=== PATIENT | male | born 1965 | race Caucasian/White ===

== ENCOUNTER 2017-03-31 20:06 | Emergency (ER) | payer BC ==
[2017-03-31 20:12] VITALS: BP 132/84
[2017-03-31] MEDS ORDERED: Diphtheria,Pertussis(Acell),Tetanus Vaccine 0.5 ML SDV IM ONE (20:13)
--- NOTE | 2017-03-31 20:51 | EDM.PDOC ---
ED HPI GENERAL MEDICAL PROBLEM - General Chief Complaint: Laceration Stated Complaint: left hand index finger laceration Time Seen by Provider: 03/31/17 20:30 Source of Information: Reports: Patient History Limitations: Reports: No Limitations - History of Present Illness INITIAL COMMENTS - FREE TEXT/NARRATIVE: Patient comes with laceration to tip of left index finger from knife. Was cleaning up dishes at the time. No other complaints. No loss of function of affected finger. No numbness. 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 [No Known Home Meds] 06/10/14 [History] Past Medical History - Past Health History Medical/Surgical History: Denies Medical/Surgical History Social & Family History - Tobacco Use Smoking Status *Q: Never Smoker Second Hand Smoke Exposure: No - Caffeine Use Caffeine Use: Reports: None - Alcohol Use Days Per Week of Alcohol Use: 1 Number of Drinks Per Day: 1 Total Drinks Per Week: 1 - Recreational Drug Use Recreational Drug Use: No ED ROS GENERAL - Review of Systems Review Of Systems: ROS reveals no pertinent complaints other than HPI. ED EXAM, SKIN/RASH Exam: See Below Exam Limited By: No Limitations General Appearance: Alert, WD/WN, No Apparent Distress Eye Exam: Bilateral Eye: EOMI, PERRL Head: Atraumatic, Normocephalic Neck: Supple Respiratory/Chest: No Respiratory Distress Neurological: Alert, Oriented, Normal Cognition, Normal Gait, No Motor/Sensory Deficits Psychiatric: Normal Affect, Normal Mood Skin: Warm, Dry, Other (1.5cm laceration to pad of left index finger. Tendon function intact. NVI. ) ED SKIN PROCEDURES - Laceration/Wound Repair Left Finger Lac/Wound length In cm: 1.5 Appearance: Subcutaneous, Clean Distal NVT: Neuro & Vascular Intact, No Tendon Injury Anesthetic Type: Local Local Anesthesia - Lidocaine (Xylocaine): 1% Plain Local Anesthetic Volume: 1cc Skin Prep: Providone-Iodine (Betadine) Exploration/Debridement/Repair: Wound Explored, In a Bloodless Field, Explored to Base Closed with: Sutures Suture Size: other (5-0) # of Sutures: 2 Suture Type: Nylon, Interrupted Drain Placement: No Sterile Dressing Applied: Nurse Tetanus Status Addressed: Yes Complications: No Course - Vital Signs Last Recorded V/S: Last Vital Signs Temp 36.7 C 03/31/17 20:11 Pulse 83 03/31/17 20:11 Resp 16 03/31/17 20:11 BP 132/84 03/31/17 20:11 Pulse Ox 94 L 03/31/17 20:11 - Orders/Labs/Meds Orders: Active Orders 24 hr Category Date Time Status Vaccines to be Administered [RC] PER UNIT ROUTINE Care 03/31/17 20:13 Active Hand 2V Lt [CR] Stat Exams 03/31/17 20:12 Taken Meds: Medications Discontinued Medications Generic Name Dose Route Start Last Admin Trade Name Freq PRN Reason Stop Dose Admin Diphtheria/Tetanus/Acell Pertussis 0.5 ml 03/31/17 20:13 03/31/17 20:29 Adacel IM 03/31/17 20:14 0.5 ml .ONCE ONE Administration Lidocaine HCl 5 ml 03/31/17 20:33 Xylocaine-Mpf 1% INJECT 03/31/17 20:34 ONETIME ONE - Radiology Interpretation Free Text/Narrative:: Xray unremarkable for bony injury. - Re-Assessments/Exams Free Text/Narrative Re-Assessment/Exam: 03/31/17 20:54 Laceration repaired. Tetanus updated. Departure - Departure Time of Disposition: 20:50 Disposition: Home, Self-Care 01 Condition: Good Clinical Impression: Laceration of left index finger Qualifiers: Encounter type: initial encounter Damage to nail status: without damage Foreign body presence: without foreign body Qualified Code(s): S61.211A - Laceration without foreign body of left index finger without damage to nail, initial encounter - Discharge Information Instructions: Stitches, [place], or Adhesive Wound Closure, [id number] Referrals: Yany Palmer NP [Primary Care Provider] - Forms: ED Department Discharge Additional Instructions: Keep wound clean as discussed. OK to apply topical antibiotic ointment 2-3 times a day. Sutures out in one week. Follow up as needed if you have any problems such as signs of infection. - My Orders Last 24 Hours: My Active Orders 03/31/17 20:12 Hand 2V Lt [CR] Stat 03/31/17 20:13 Vaccines to be Administered [RC] PER UNIT ROUTINE - Assessment/Plan Last 24 Hours: My Active Orders 03/31/17 20:12 Hand 2V Lt [CR] Stat 03/31/17 20:13 Vaccines to be Administered [RC] PER UNIT ROUTINE
== END 2017-03-31 21:00 | disposition home or self-care (01) ==
LOC: LL.ED 20:06
DX: S61.211A Laceration without foreign body of left index finger without damage to nail, initial encounter (principal); Z88.0 Allergy status to penicillin; W26.0XXA Contact with knife, initial encounter; Y93.89 Activity, other specified
CPT/HCPCS: 12001; 73120-LT; 90471; 90715; 99283

== ENCOUNTER 2019-05-08 09:30 | Day surgery (SDC) | payer BC ==
[~2019-05-08 09:30] MED LIST: Lactated Ringers 1,000 ML IV SCH; Propofol 200 MG/20 ML SDV ONE; Sodium Chloride 0.9% 10 ML Syringe FLUSH PRN
--- NOTE | 2019-05-08 10:16 | PCM.HPR ---
H & P Addendum review - H & P Addendum Review Date of Original H & P: 05/08/19 Date Reviewed: 04/22/19 Time Reviewed: 10:16 Patient was Examined: No Changes
[2019-05-08] MEDS ORDERED: Propofol 200 MG/20 ML SDV ONE (10:22)
--- NOTE | 2019-05-08 10:41 | PCM.OPNOTE ---
- General Post-Op/Procedure Note Date of Surgery/Procedure: 05/08/19 Operative Procedure(s): Colonoscopy Findings: Sig Tics Pre Op Diagnosis: Screening Post-Op Diagnosis: Same Anesthesia Technique: MAC Primary Surgeon: Cachorro Chow Anesthesia Provider: Sybil Haile Complications: None Condition: Good
[2019-05-08 11:36] VITALS: BP 114/78
--- NOTE | 2019-05-09 10:17 | OR ---
Date of Procedure: 05/08/2019 PREOPERATIVE DIAGNOSIS: Colon screening. POSTOPERATIVE DIAGNOSIS: Sigmoid diverticulosis. PROCEDURE: Colonoscopy. ANESTHESIA: IV sedation. DESCRIPTION OF PROCEDURE: The patient was brought to the procedure room where he was placed on his left side and IV sedation administered. Digital rectal exam was performed which was normal. Colonoscope was inserted and advanced to the level of the cecum without difficulty. Cecal position was confirmed by identifying the appendiceal lumen and the ileocecal valve. Prep was good and surfaces were well visualized. Upon withdrawing the scope, the ascending, transverse, and descending colon were normal in appearance. Sigmoid colon has several medium-sized diverticula present. Rectum was normal and retroflexion was normal. Air was removed and the scope withdrawn. The patient tolerated the procedure well and returned to recovery in stable condition. Recommend routine colon screening again in 10 years. MARBIN PEACE MD /[id number]
== END 2019-05-08 11:25 | disposition home or self-care (01) ==
LOC: LL.SDS 09:30
PROVIDERS: ATTEND Surgery
DX: Z12.11 Encounter for screening for malignant neoplasm of colon (principal); K57.30 Diverticulosis of large intestine without perforation or abscess without bleeding; Z88.0 Allergy status to penicillin
CPT/HCPCS: J2704; J7120

== ENCOUNTER 2023-08-23 10:56 | Day surgery (SDC) | payer BC ==
[~2023-08-23 10:56] MED LIST changes: -Lactated Ringers 1,000 ML IV SCH; +Midazolam 1 MG/ML 2 ML SDV ONE; -Sodium Chloride 0.9% 10 ML Syringe FLUSH PRN
[2023-08-23] MEDS ORDERED: Sodium Chloride 0.9% 10 ML Syringe FLUSH PRN (11:00)
[2023-08-23] MEDS ORDERED: Lactated Ringers 1,000 ML IV SCH (11:00)
[2023-08-23 13:49] VITALS: BP 121/79; PULSE 67
== END 2023-08-23 14:20 | disposition home or self-care (01) ==
LOC: LL.SDS 10:56
PROVIDERS: ATTEND Surgery
DX: Z12.11 Encounter for screening for malignant neoplasm of colon (principal); D12.2 Benign neoplasm of ascending colon; D12.3 Benign neoplasm of transverse colon; D12.8 Benign neoplasm of rectum; K57.30 Diverticulosis of large intestine without perforation or abscess without bleeding; K21.9 Gastro-esophageal reflux disease without esophagitis; I10 Essential (primary) hypertension
CPT/HCPCS: 00812; J2250; J2704; J7120